=== PATIENT | female | born 1995 | race African-American/Black ===

== ENCOUNTER 2017-04-04 00:33 | Emergency (ER) | payer MEDICAID ==
[~2017-04-04] VITALS: Ht 160 cm; Wt 106.0 kg
[2017-04-04] MEDS ORDERED: ONDANSETRON HCL 4MG/2ML VIAL IV STA (01:17)
[2017-04-04] MEDS ORDERED: SODIUM CHLORIDE 0.9% 1,000 ML IV ONE (01:17)
[2017-04-04 01:36] LABS: BASOPHILS % 0.5 % (0.0-2.0); EOSINOPHILS % 1.5 % (0.0-5.0); HEMATOCRIT. 33.3 % (36.0-48.0); HEMOGLOBIN. 10.6 g/dL (12.0-16.0); LYMPHOCYTES % 35.8 % (20.0-50.0); MEAN CORPUSCULAR HEMOGLOBIN 21.9 pg (28.0-32.0); MEAN CORPUSCULAR VOLUME 68.6 fL (81.0-99.0); MONOCYTES % 7.9 % (2.0-8.0); NEUTROPHILS % 54.3 % (40.0-76.0); PLATELET 330 x1000/uL (130-400); RED BLOOD CELL COUNT 4.86 mill/uL (4.2-5.4); RED CELL DISTRIBUTION WIDTH 17.6 % (11.6-14.6)
[2017-04-04 01:42] LABS: PROTHROMBIN TIME 10.7 sec (9.4-11.6)
[2017-04-04 01:44] LABS: CHLORIDE 110 mEq/L (98-107)
[2017-04-04 01:51] LABS: CARBON DIOXIDE 27 mEq/L (21-32)
[2017-04-04 02:27] LABS: PLATELET ESTIMATE NORMAL
[2017-04-04 03:30] VITALS: BP 122/79
[2017-04-04] MEDS ORDERED: KETOROLAC 30MG/ML VIAL IV ONE (03:30)
[2017-04-04 04:27] LABS: CLARITY URINE CLOUDY (CLEAR); COLOR URINE YELLOW (YELLOW); GLUCOSE URINE NEGATIVE (NEGATIVE); KETONES URINE NEGATIVE (NEGATIVE); LEUKOCYTE ESTERASE URINE 1+ (NEGATIVE); NITRITE URINE NEGATIVE (NEGATIVE); OCCULT BLOOD URINE NEGATIVE (NEGATIVE); PH URINE 6.5 (4.5-8.0); PROTEIN URINE NEGATIVE (NEGATIVE); SPECIFIC GRAVITY URINE 1.021 (1.005-1.030)
== END 2017-04-04 05:00 | disposition home or self-care (01) ==
LOC: ER 00:33
DX: A08.4 Viral intestinal infection, unspecified (principal); N39.0 Urinary tract infection, site not specified; R51 Headache
CPT/HCPCS: 36415; 80053; 81001; 81025; 83690; 85025; 85610; 96361; 96374; 96375; 99284; J1885; J2405; J7030

== ENCOUNTER 2017-04-10 20:40 | Emergency (ER) | payer OTHER, MEDICAID ==
[~2017-04-10] VITALS: Ht 160 cm; Wt 105.0 kg
[2017-04-11] MEDS ORDERED: SODIUM CHLORIDE 0.9% 1,000 ML IV ONE ×2 (01:30→05:36)
[2017-04-11] MEDS ORDERED: MORPHINE SULFATE 4 MG/ML CPJ (NOT FOR IM USE) IV STA (01:30)
[2017-04-11] MEDS ORDERED: ONDANSETRON HCL 4MG/2ML VIAL IV STA ×2 (01:30→05:36)
[2017-04-11] MEDS ORDERED: MORPHINE SULFATE 2 MG/ML CPJ (NOT FOR IM USE) IV ONE ×2 (01:45→05:45)
[2017-04-11] MEDS ORDERED: MORPHINE SULFATE 10 MG/ML CPJ IV ONE (01:45)
[2017-04-11 01:53] LABS: BASOPHILS % 0.4 % (0.0-2.0); EOSINOPHILS % 0.1 % (0.0-5.0); HEMATOCRIT. 32.8 % (36.0-48.0); HEMOGLOBIN. 10.3 g/dL (12.0-16.0); MEAN CORPUSCULAR HEMOGLOBIN 21.5 pg (28.0-32.0); MEAN CORPUSCULAR VOLUME 68.5 fL (81.0-99.0); MEAN PLATELET VOLUME 8.3 fl (7.4-10.4); NEUTROPHILS % 81.5 % (40.0-76.0); PLATELET 381 x1000/uL (130-400); RED BLOOD CELL COUNT 4.78 mill/uL (4.2-5.4); RED CELL DISTRIBUTION WIDTH 17.4 % (11.6-14.6)
[2017-04-11 01:57] LABS: PLATELET ESTIMATE NORMAL
[2017-04-11 01:59] LABS: CHLORIDE 107 mEq/L (98-107)
[2017-04-11 02:07] LABS: CARBON DIOXIDE 24 mEq/L (21-32)
[2017-04-11 02:47] LABS: KETONES URINE NEGATIVE (NEGATIVE); LEUKOCYTE ESTERASE URINE 1+ (NEGATIVE); NITRITE URINE NEGATIVE (NEGATIVE); OCCULT BLOOD URINE NEGATIVE (NEGATIVE); PH URINE 7.5 (4.5-8.0); PROTEIN URINE NEGATIVE (NEGATIVE); SPECIFIC GRAVITY URINE 1.017 (1.005-1.030); UROBILINOGEN URINE 0.2 E.U./dL (0.2-1.0)
[2017-04-11 02:54] LABS: *AMPHETAMINES SCREEN URINE NEGATIVE (NEGATIVE); *BARBITURATES SCREEN URINE NEGATIVE (NEGATIVE); *BENZODIAZEPINES SCREEN URINE NEGATIVE (NEGATIVE); METHADONE URINE SCREEN NEGATIVE (NEGATIVE); OPIATES URINE SCREEN NEGATIVE (NEGATIVE); PHENCYCLIDINE URINE SCREEN NEGATIVE (NEGATIVE)
[2017-04-11 03:02] LABS: CANNABINOID URINE SCREEN PRESUMTIVE POSITIVE (NEGATIVE)
[2017-04-11 03:03] LABS: *COCAINE SCREEN URINE NEGATIVE (NEGATIVE)
[2017-04-11 03:11] LABS: CLARITY URINE SL HAZY (CLEAR); COLOR URINE YELLOW (YELLOW)
[2017-04-11] MEDS ORDERED: KETOROLAC 30MG/ML VIAL IV STA (03:59)
[2017-04-11] MEDS ORDERED: CEFTRIAXONE 1 G PREMIX 50 ML IV ONE (04:15)
[2017-04-11 09:00] VITALS: BP 105/62
== END 2017-04-11 09:00 | disposition home or self-care (01) ==
LOC: ER 04-11 00:11
DX: N39.0 Urinary tract infection, site not specified (principal); R10.2 Pelvic and perineal pain; F12.10 Cannabis abuse, uncomplicated; Z98.890 Other specified postprocedural states
CPT/HCPCS: 36415; 74176; 76830; 76856; 80053; 80305; 81001; 83690; 85025; 96361; 96365; 96375; 99285; J0696; J1885; J2270; J2405; J7030; Z7610